=== PATIENT | male | born 1970 | race Caucasian/White ===

== ENCOUNTER → 2018-01-24 | Outpatient (CLI) | payer BC ==
[~2018-01-24] MED LIST: CIPR500T94 PO; IOHEXOL 240 MG/ML 50ML VIAL. PO ONE; IOHEXOL 300 MG/ML 75 ML VIAL. IV ONE; METR500T PO; OMEP40CA5 PO; RANI150T2 PO
[2018-01-24 16:03] LABS: BASO # 0.1 x10^3/uL (0.0-0.2); BASO % 0 % (0-3); EOS # 0.2 x10^3/uL (0.0-0.7); EOS % 1 % (0-3); HEMATOCRIT 43.7 % (39.0-53.0); HEMOGLOBIN 14.6 g/dL (13.0-17.5); LYMPH # 1.6 x10^3/uL (1.0-4.8); LYMPH % 9 % (24-48); MEAN CORPUSCULAR HEMOGLOBIN 29 pg (25-35); MEAN CORPUSCULAR HGB CONC 33 g/dL (31-37); MEAN CORPUSCULAR VOLUME 87 fL (79-100); MONO # 1.2 x10^3/uL (0.0-1.1); MONO % 7 % (0-9); NEUT # 15.3 x10^3uL (1.8-7.7); NEUT % 83 % (31-73); PLATELET COUNT 216 x10^3/uL (140-400); RED CELL DISTRIBUTION WIDTH 14.2 % (11.5-14.5); WHITE BLOOD COUNT 18.4 x10^3/uL (4.0-11.0)
[2018-01-24 16:18] LABS: ALBUMIN 4.1 g/dL (3.4-5.0); ALBUMIN/GLOBULIN RATIO 0.9 (1.0-1.7); CALCIUM 9.6 mg/dL (8.5-10.1); CREATININE 1.2 mg/dL (0.7-1.3); GFR 65.2; POTASSIUM 3.7 mmol/L (3.5-5.1); TOTAL BILIRUBIN 0.9 mg/dL (0.2-1.0); TOTAL PROTEIN 8.5 g/dL (6.4-8.2)
[2018-01-24 16:58] LABS: % EOS 1 % (0-5); % LYMPHS 8 % (24-48); % MONOS 2 % (0-10); % SEGS 86 % (35-66)
--- NOTE | 2018-01-24 16:58 | RAD ---
CT abdomen and pelvis with intravenous contrast 01/24/2018 CLINICAL INDICATION: Epigastric pain for one month left lower quadrant pain. COMPARISON: None. TECHNIQUE: Multiple CT images of the abdomen and pelvis were obtained following the intravenous and ministration of 75 mL Omnipaque 300. Oral contrast was administered. *One or more of the following individualized dose reduction techniques were utilized for this examination: 1. Automated exposure control. 2. Adjustment of the mA and/or kV according to patient size. 3. Use of iterative reconstruction technique. FINDINGS: Heart size is normal. Visualized lung bases are clear. Mild hepatic steatosis. Gallbladder, spleen, adrenal glands, pancreas and kidneys are unremarkable. Abdominal aorta is normal in caliber. No retroperitoneal or mesenteric lymphadenopathy. Small and large bowel loops are normal in caliber without obstruction appendix is normal in appearance. There is mild sigmoid diverticulosis with extensive pericolonic stranding and extramural gas centered adjacent to a diverticula series 2/image 78, series 3/image 22. No bahman pneumoperitoneum. No discrete pericolonic gas/fluid collection. There is trace dependent free fluid. No iliac or inguinal lymphadenopathy. No retroperitoneal or mesenteric lymphadenopathy. Mildly distended unopacified urinary bladder, prostate and seminal vesicles are unremarkable. There are no destructive osseous lesions. IMPRESSION: Acute sigmoid diverticulitis. Mild extramural gas without bahman pneumoperitoneum or discrete abscess. Electronically signed by: Tad Melendez MD (01/24/2018 4:55 PM) [id number]
[2018-01-24 16:59] LABS: PLT ESTIMATE ADEQUATE (ADEQUATE)
[2018-01-24 17:05] LABS: % ATYL 3 % (0-0)
== END | disposition home or self-care (01) ==
LOC: LAB 14:48
PROVIDERS: ATTEND Physician Assistant
DX: K57.32 Diverticulitis of large intestine without perforation or abscess without bleeding (principal); K57.30 Diverticulosis of large intestine without perforation or abscess without bleeding; K76.0 Fatty (change of) liver, not elsewhere classified; K92.1 Melena; K21.9 Gastro-esophageal reflux disease without esophagitis; K52.89 Other specified noninfective gastroenteritis and colitis
CPT/HCPCS: 36415; 74177; 80053; 83690; 85007; 85025; Q9966; Q9967

== ENCOUNTER 2018-01-26 16:33 | Inpatient (IN) | payer BC ==
[~2018-01-26] VITALS: Ht 195.6 cm; Wt 131.5 kg
[2018-01-26] MEDS ORDERED: ZOLPIDEM 5 MG TABLET. PO PRN (17:30)
[2018-01-26] MEDS ORDERED: ACETAMINOPHEN 500 MG TABLET PO PRN (17:30)
[2018-01-26] MEDS ORDERED: RANI150T2 PO (17:51)
[2018-01-26] MEDS ORDERED: CIPR500T94 PO (17:51)
[2018-01-26] MEDS ORDERED: OMEP40CA5 PO (17:51)
[2018-01-26] MEDS ORDERED: METR500T PO (17:51)
[2018-01-26 17:52] LABS: BASO # 0.2 x10^3/uL (0.0-0.2); BASO % 2 % (0-3); EOS # 0.7 x10^3/uL (0.0-0.7); EOS % 7 % (0-3); HEMATOCRIT 39.6 % (39.0-53.0); HEMOGLOBIN 13.3 g/dL (13.0-17.5); LYMPH # 1.7 x10^3/uL (1.0-4.8); LYMPH % 18 % (24-48); MEAN CORPUSCULAR HEMOGLOBIN 29 pg (25-35); MEAN CORPUSCULAR HGB CONC 34 g/dL (31-37); MEAN CORPUSCULAR VOLUME 87 fL (79-100); MONO # 0.7 x10^3/uL (0.0-1.1); MONO % 7 % (0-9); NEUT # 6.6 x10^3uL (1.8-7.7); NEUT % 67 % (31-73); PLATELET COUNT 234 x10^3/uL (140-400); RED BLOOD COUNT 4.55 x10^6/uL (4.30-5.70); RED CELL DISTRIBUTION WIDTH 13.6 % (11.5-14.5); WHITE BLOOD COUNT 9.8 x10^3/uL (4.0-11.0)
[2018-01-26 17:54] VITALS: BP 146/80
[2018-01-26 18:08] LABS: ALBUMIN 3.4 g/dL (3.4-5.0); CALCIUM 9.2 mg/dL (8.5-10.1); CREATININE 1.1 mg/dL (0.7-1.3); GFR 72.1; POTASSIUM 3.9 mmol/L (3.5-5.1); TOTAL BILIRUBIN 0.4 mg/dL (0.2-1.0); TOTAL PROTEIN 6.7 g/dL (6.4-8.2)
[2018-01-26] MEDS: IV NORMAL SALINE 1,000ML 1,000 ML IV SCH (18:20)
[2018-01-26 20:00] VITALS: BP 151/74
[2018-01-26 20:15] LABS: FECAL OB PT NEGATIVE (NEG)
[2018-01-26] MEDS ORDERED: CIPROFLOXACIN HCL 500 MG TABLET PO SCH (21:00)
[2018-01-26] MEDS: SUCRALFATE 1 GM/10 ML ORAL.SUSP. PO SCH (21:10)
[2018-01-26] MEDS: metroNIDAZOLE 500 MG TABLET PO SCH (21:10)
[2018-01-26] MEDS: FAMOTIDINE 20 MG TABLET PO SCH (21:10)
[2018-01-26] MEDS: PANTOPRAZOLE IV 40 MG VIAL. IVP SCH (21:10)
[2018-01-26] MEDS: LACTOBACILLUS RHAMNOSUS GG 1 CAPSULE. PO SCH (21:10)
[2018-01-27 00:01] VITALS: BP 140/82
[2018-01-27] MEDS: IV NORMAL SALINE 1,000ML 1,000 ML IV SCH ×2 (00:17→07:20)
[2018-01-27 05:00] VITALS: BP 125/67
[2018-01-27] MEDS: PANTOPRAZOLE IV 40 MG VIAL. IVP SCH (06:01)
[2018-01-27] MEDS: SUCRALFATE 1 GM/10 ML ORAL.SUSP. PO SCH ×2 (06:01→07:46)
[2018-01-27 06:40] LABS: BASO # 0.1 x10^3/uL (0.0-0.2); BASO % 1 % (0-3); EOS # 0.8 x10^3/uL (0.0-0.7); EOS % 9 % (0-3); HEMATOCRIT 38.7 % (39.0-53.0); LYMPH % 23 % (24-48); MEAN CORPUSCULAR HEMOGLOBIN 29 pg (25-35); MEAN CORPUSCULAR HGB CONC 34 g/dL (31-37); MEAN CORPUSCULAR VOLUME 88 fL (79-100); MONO # 0.7 x10^3/uL (0.0-1.1); MONO % 8 % (0-9); NEUT % 59 % (31-73); PLATELET COUNT 215 x10^3/uL (140-400); RED BLOOD COUNT 4.41 x10^6/uL (4.30-5.70); WHITE BLOOD COUNT 8.5 x10^3/uL (4.0-11.0)
[2018-01-27] MEDS: FAMOTIDINE 20 MG TABLET PO SCH (07:46)
[2018-01-27] MEDS: metroNIDAZOLE 500 MG TABLET PO SCH (07:46)
[2018-01-27] MEDS: LACTOBACILLUS RHAMNOSUS GG 1 CAPSULE. PO SCH (07:47)
[2018-01-27 07:56] LABS: CALCIUM 8.6 mg/dL (8.5-10.1); GFR 80.4; POTASSIUM 4.4 mmol/L (3.5-5.1)
[2018-01-27 09:01] VITALS: BP 141/84
== END 2018-01-27 12:30 | disposition home or self-care (01) | DRG 391 ==
LOC: ICU 17:05
PROVIDERS: ADMIT Family Medicine; ATTEND Family Medicine
DX: K57.32 Diverticulitis of large intestine without perforation or abscess without bleeding (principal); K29.01 Acute gastritis with bleeding; Z80.42 Family history of malignant neoplasm of prostate; Z79.899 Other long term (current) drug therapy; Z88.0 Allergy status to penicillin
CPT/HCPCS: 36415; 74177; 80048; 80053; 82274; 83605; 83690; 85007; 85025; 85610; 87045; 87641; C9113; J1956; Q9966; Q9967; J7030

== ENCOUNTER 2021-10-17 14:09 | Emergency (ER) | payer BC ==
[~2021-10-17] VITALS: Ht 195.6 cm; Wt 141.6 kg
[~2021-10-17 14:09] MED LIST changes: -IOHEXOL 240 MG/ML 50ML VIAL. PO ONE; -IOHEXOL 300 MG/ML 75 ML VIAL. IV ONE; -OMEP40CA5 PO; +OMEP40CA7 PO
--- NOTE | 2021-10-17 14:47 | PHYS DOC ---
Past History Past Surgical History: Tonsillectomy Alcohol Use: Rarely General Adult EDM: Chief Complaint: LOWER EXT PAIN HPI: HPI: 51-year-old male presents with pain of the left lower leg below the knee. The patient had several episodes of intense pain yesterday from the Achilles heel up to behind the knee. These episodes, now normal last night but he has had additional episodes today though less frequent. He does not currently hurting very much, 2 out of 10. He did recently have a long travel times over [facility]. He has never had a DVT but his is concerned that his symptoms sound like a DVT she had. He is here to rule out DVT. Review of Systems: Review of Systems: Constitutional: Denies fever or chills Eyes: Denies change in visual acuity HENT: Denies nasal congestion or sore throat Respiratory: Denies cough or shortness of breath Cardiovascular: Denies chest pain or edema GI: Denies abdominal pain, nausea, vomiting, bloody stools or diarrhea : Denies dysuria Musculoskeletal: Left lower leg pain Integument: Denies rash Neurologic: Denies headache, focal weakness or sensory changes Endocrine: Denies polyuria or polydipsia Lymphatic: Denies swollen glands Psychiatric: Denies depression or anxiety Allergies: Allergies: Allergies Coded Allergies Type Severity Reaction Last Updated Verified Penicillins Allergy Intermediate 01/24/18 Yes Physical Exam: PE: Constitutional: Well developed, well nourished, obese, no acute distress, non- toxic appearance. [] HENT: Normocephalic, atraumatic, bilateral external ears normal, oropharynx moist, no oral exudates, nose normal. [] Eyes: PERRLA, EOMI, conjunctiva normal, no discharge. [] Neck: Normal range of motion, no tenderness, supple, no stridor. [] Cardiovascular: Heart rate regular rhythm, no murmur [] Lungs & Thorax: Bilateral breath sounds clear to auscultation [] Abdomen: Bowel sounds normal, soft, no tenderness, no masses, no pulsatile masses. [] Skin: Warm, dry, no erythema, no rash. [] Back: No tenderness, no CVA tenderness. [] Extremities: No tenderness, no cyanosis, no clubbing, ROM intact, no edema. Left lower leg roughly similar dimension to the right. [] Neurologic: Alert and oriented X 3, normal motor function, normal sensory function, no focal deficits noted. [] Psychologic: Affect normal, judgement normal, mood normal. [] Current Patient Data: Vital Signs: Vital Signs Date Time Temp Pulse Resp B/P (MAP) Pulse Ox O2 Delivery O2 Flow Rate FiO2 10/17/21 14:26 98.0 72 18 141/86 (104) 97 Room Air EKG: EKG: [] Radiology/Procedures: Radiology/Procedures: [] Heart Score: C/O Chest Pain: N/A Risk Factors: Risk Factors: DM, Current or recent (<one month) smoker, HTN, HLP, family history of CAD, obesity. Risk Scores: Score 0 - 3: 2.5% MACE over next 6 weeks - Discharge Home Score 4 - 6: 20.3% MACE over next 6 weeks - Admit for Clinical Observation Score 7 - 10: 72.7% MACE over next 6 weeks - Early Invasive Strategies Course & Med Decision Making: Course & Med Decision Making Pertinent Labs and Imaging studies reviewed. (See chart for details) The patient's labs are unremarkable. His ultrasound is negative for DVT. This is likely an Achilles tendinitis or other musculoskeletal lower leg cause for his pain. I have advised supportive care such as ibuprofen and Voltaren gel. He is stable for discharge at this time. [] Dragon Disclaimer: Dragon Disclaimer: This electronic medical record was generated, in whole or in part, using a voice recognition dictation system. Departure Departure: Impression: Primary Impression: Pain of left lower leg Disposition: HOME / SELF CARE / HOMELESS Condition: STABLE Referrals: WANDA PARIS MD (PCP) CHANTEL MELÉNDEZ DO Oct 17, 2021 14:47
[2021-10-17 15:28] LABS: BASO # 0.1 x10^3/uL (0.0-0.2); BASO % 1 % (0-3); EOS # 0.4 x10^3/uL (0.0-0.7); EOS % 5 % (0-3); HEMATOCRIT 41.9 % (39.0-53.0); HEMOGLOBIN 14.1 g/dL (13.0-17.5); LYMPH % 23 % (24-48); MEAN CORPUSCULAR HEMOGLOBIN 30 pg (25-35); MEAN CORPUSCULAR HGB CONC 34 g/dL (31-37); MEAN CORPUSCULAR VOLUME 89 fL (79-100); MONO # 0.4 x10^3/uL (0.0-1.1); MONO % 4 % (0-9); NEUT # 5.8 x10^3uL (1.8-7.7); NEUT % 67 % (31-73); PLATELET COUNT 226 x10^3/uL (140-400); RED BLOOD COUNT 4.73 x10^6/uL (4.30-5.70); RED CELL DISTRIBUTION WIDTH 14.7 % (11.5-14.5); WHITE BLOOD COUNT 8.6 x10^3/uL (4.0-11.0)
[2021-10-17 15:38] LABS: CALCIUM 8.5 mg/dL (8.5-10.1); CREATININE 1.1 mg/dL (0.7-1.3); GFR 70.9
[2021-10-17 15:44] LABS: ALBUMIN 3.8 g/dL (3.4-5.0); ALBUMIN/GLOBULIN RATIO 1.2 (1.0-1.7); TOTAL BILIRUBIN 0.3 mg/dL (0.2-1.0)
[2021-10-17 16:00] VITALS: BP 132/76
--- NOTE | 2021-10-17 16:19 | RAD ---
Left Lower Extremity Venous Doppler: Reason for examination: Left lower extremity pain. Recent history of traveling for a long period of t sarath. The left lower extremity venous system was evaluated from the common femoral and greater saphenous ve ins distally to the calf veins with grayscale imaging, color-flow imaging and spectral analysis. There is normal blood flow without deep venous thrombosis. There is normal response of the venous sys tems to compression and augmentation. Impression: No deep venous thrombosis in the left lower extremity venous system. Electronically signed by: Shruthi Clemente MD (10/17/2021 4:17 PM) GISELLE
== END 2021-10-17 16:25 | disposition home or self-care (01) ==
LOC: ER 14:09
DX: M79.662 Pain in left lower leg (principal); Z88.0 Allergy status to penicillin
CPT/HCPCS: 36415; 80053; 85025; 93971; 99284-25